=== PATIENT | female | born 1985 | race African-American/Black ===

== ENCOUNTER 2017-02-27 18:28 | Emergency (ER) | payer OTHER ==
[2017-02-27 19:11] VITALS: BP 147/89; PULSE 116; TEMP 98.1; BMI 21.2
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
== END 2017-02-27 20:01 | disposition home or self-care (01) ==
LOC: JER 18:28
DX: F10.129 Alcohol abuse with intoxication, unspecified (principal); F17.210 Nicotine dependence, cigarettes, uncomplicated
CPT/HCPCS: 99282-25

== ENCOUNTER 2023-02-03 18:58 | Emergency (ER) | payer OTHER ==
[2023-02-03 19:05] VITALS: BP 134/82; PULSE 79; RESP 18; TEMP 98.2; BMI 26.1
[2023-02-03 19:49] LABS: EPI CELLS 32 /uL (0-25.1); HYALINE CASTS 2 /uL (0-3.1); URINE APPEARANCE CLEAR; URINE BACTERIA 369 /uL (0-1359); URINE BILIRUBIN NEGATIVE (NEGATIVE); URINE COLOR YELLOW; URINE GLUCOSE (UA) NEGATIVE (NEGATIVE); URINE KETONE 1+ (NEGATIVE); URINE LEUK ESTERASE 1+ (NEGATIVE); URINE NITRITE NEGATIVE (NEGATIVE); URINE PROTEIN TRACE (NEGATIVE); URINE RBC 48 /uL (0-23.9); URINE WBC 35 /uL (0-25.8)
[2023-02-03 19:58] LABS: HCG,QUALITATIVE URINE Negative
== END 2023-02-03 20:50 | disposition home or self-care (01) ==
LOC: JER 18:58 → JERFT 18:58
DX: L29.2 Pruritus vulvae (principal); N89.8 Other specified noninflammatory disorders of vagina; N77.1 Vaginitis, vulvitis and vulvovaginitis in diseases classified elsewhere; B96.89 Other specified bacterial agents as the cause of diseases classified elsewhere; A63.0 Anogenital (venereal) warts
CPT/HCPCS: 36415; 81003; 84703; 87070; 87086; 87205; 87491; 87591; 87661; 99283-25